=== PATIENT | male | born 1950 | race Caucasian/White ===

== ENCOUNTER 2019-03-01 12:04 | Emergency (ER) | payer OTHER, BC | END 2019-03-01 13:02 | disposition home or self-care (01) | LOC: FER 12:04 ==

== ENCOUNTER 2023-06-28 20:11 | Emergency (ER) | payer OTHER, MEDICARE ==
[2023-06-28 20:54] VITALS: BP 144/93; PULSE 70; RESP 16; TEMP 98.1; BMI 28.7
[2023-06-28] MEDS ORDERED: ACETAMINOPHEN 500 MG TABLET (FP) PO ONE (22:10)
[2023-06-28] MEDS ORDERED: ACETAMINOPHEN 500 MG TABLET (FP) ONE (22:11)
[2023-06-28] MEDS ORDERED: DIPHTH,PERTUSS(ACELL),TET 0.5 ML DISP.SYRIN IM ONE ×2 (22:34→22:40)
== END 2023-06-28 22:51 | disposition home or self-care (01) ==
LOC: FER 20:11
PROC: 3E0234Z Introduction of Serum, Toxoid and Vaccine into Muscle, Percutaneous Approach (ICD-10-PCS; principal; 2023-06-28)
DX: S83.92XA Sprain of unspecified site of left knee, initial encounter (principal); S61.011A Laceration without foreign body of right thumb without damage to nail, initial encounter; R07.9 Chest pain, unspecified; M79.644 Pain in right finger(s); M25.562 Pain in left knee; W01.0XXA Fall on same level from slipping, tripping and stumbling without subsequent striking against object, initial encounter; Y93.01 Activity, walking, marching and hiking
CPT/HCPCS: 73130-TC-RT-FY; 73560-TC-LT-FY; 90471; 90715; 99284-25